=== PATIENT | male | born 2000 | race Caucasian/White ===

== ENCOUNTER 2024-07-26 19:47 | Inpatient (IN) | payer BC ==
[~2024-07-26] VITALS: Ht 170.2 cm; Wt 68.0 kg
[2024-07-26 20:20] LABS: BASOPHILS % 0.2 % (0.0-2.0); EOSINOPHILS % 0.3 % (0.0-5.0); HEMATOCRIT. 41.3 % (42.0-52.0); MEAN CORPUSCULAR HEMOGLOBIN 30.2 pg (28.0-32.0); MEAN CORPUSCULAR HGB CONC 33.9 g/dL (31.0-37.0); MEAN CORPUSCULAR VOLUME 89.1 fL (80.0-94.0); MEAN PLATELET VOLUME 7.5 fl (7.4-10.4); MONOCYTES % 10.6 % (2.0-8.0); NEUTROPHILS % 79.9 % (40.0-76.0); PLATELET 264 x1000/uL (130-400); RED BLOOD CELL COUNT 4.63 mill/uL (4.7-6.1); RED CELL DISTRIBUTION WIDTH 13.8 % (11.6-14.6); WHITE BLOOD COUNT 10.4 x1000/uL (4.5-11.0)
[2024-07-26 20:25] LABS: CHLORIDE 106 mEq/L (98-107); POTASSIUM 3.2 mEq/L (3.5-5.1); SODIUM 140 mEq/L (136-145)
[2024-07-26 20:26] LABS: CALCIUM 9.3 mg/dL (8.7-10.4); CARBON DIOXIDE 26 mEq/L (21-32)
[2024-07-26 20:31] LABS: GLUCOSE 128 mg/dL (70-105); UREA NITROGEN BLOOD 10 mg/dL (9-23)
[2024-07-26 20:52] LABS: TROPONIN I HIGH SENSITIVITY 42319 ng/L (3.0-53)
[2024-07-26] MEDS: ENOXAPARIN 80MG/0.8ML SYR SUBCUT ONE (21:54)
[2024-07-26] MEDS: POTASSIUM CHLORIDE 20MEQ/PACKET PO ONE (21:54)
[2024-07-26 22:32] LABS: TROPONIN I HIGH SENSITIVITY 43308 ng/L (3.0-53)
[2024-07-26 23:38] LABS: *AMPHETAMINES SCREEN URINE NEGATIVE (NEGATIVE); *BARBITURATES SCREEN URINE NEGATIVE (NEGATIVE); *BENZODIAZEPINES SCREEN URINE NEGATIVE (NEGATIVE); *COCAINE SCREEN URINE NEGATIVE (NEGATIVE); CANNABINOID URINE SCREEN NEGATIVE (NEGATIVE); ECSTASY MDMA SCREEN URINE NEGATIVE (NEGATIVE); METHADONE URINE SCREEN NEGATIVE (NEGATIVE); OPIATES URINE SCREEN NEGATIVE (NEGATIVE); PHENCYCLIDINE URINE SCREEN NEGATIVE (NEGATIVE)
[2024-07-27] MEDS ORDERED: HYDROCODONE/ACETAMINOPHEN 5/325MG TABLET PO PRN (02:30)
[2024-07-27] MEDS ORDERED: DOCUSATE SODIUM 100MG CAPSULE PO PRN (02:30)
[2024-07-27] MEDS ORDERED: MAGNESIUM/ALUMINUM HYDROXIDE/SIMETHICONE 30ML UDC PO PRN (02:30)
[2024-07-27] MEDS ORDERED: CLONIDINE 0.1MG TABLET PO PRN (02:30)
[2024-07-27] MEDS ORDERED: ONDANSETRON HCL 4MG/2ML INJ IV PRN (02:30)
[2024-07-27] MEDS: ACETAMINOPHEN 325MG TABLET PO PRN (04:06)
[2024-07-27] MEDS: ALPRAZOLAM 0.25 MG TABLET PO NR (04:24)
[2024-07-27 06:45] LABS: CREATINE KINASE MB FRACTION 192.7 ng/mL (0.5-3.6)
[2024-07-27 07:24] LABS: TROPONIN I HIGH SENSITIVITY 66181 ng/L (3.0-53)
[2024-07-27] MEDS: ENOXAPARIN 40MG/0.4ML SYR SUBCUT SCH (09:00)
[2024-07-27 09:44] LABS: ALANINE AMINOTRANSFERASE 42 IU/L (10-49); ALBUMIN 3.9 g/dL (3.2-4.8); ASPARTATE AMINOTRANSFERASE 201 IU/L (<34)
[2024-07-27 09:45] LABS: BILIRUBIN DIRECT 0.2 mg/dL (<=3.0); BILIRUBIN TOTAL 0.6 mg/dL (0.1-1.0); PROTEIN TOTAL 6.8 g/dL (6.0-8.3)
[2024-07-27] MEDS ORDERED: IODIXANOL 320MG/ML 100 ML BOTTLE IV ONE (12:16)
[2024-07-27] MEDS ORDERED: HEPARIN 1000 UNITS/ML 10ML ONE (12:16)
[2024-07-27] MEDS ORDERED: LIDOCAINE HCL 1% 20ML VIAL ONE (12:16)
[2024-07-27 12:44] LABS: CREATINE KINASE 2200 IU/L (46-171)
[2024-07-27] MEDS ORDERED: NALOXONE HCL 0.4MG/ML VIAL IV PRN (17:30)
[2024-07-27 18:30] VITALS: BP 107/65; PULSE 86; RESP 18; O2SAT 96
[2024-07-27 20:00] VITALS: BP_SYST 103; BP_SYST 107; BP_DIAS 65; BP_DIAS 74; PULSE 81; PULSE 86; RESP 16; RESP 18; TEMP 36.50292; TEMP 36.5292; O2SAT 97
[2024-07-27 22:00] VITALS: BP 109/73; PULSE 85; RESP 16; O2SAT 98
[2024-07-28] VITALS (11 sets, daily range): BP systolic 100–127; BP diastolic 57–85; PULSE 60–100; RESP 12–20; TEMP 36.3918–37.16964; O2SAT 95–100
[2024-07-28 06:36] LABS: BASOPHILS % 0.3 % (0.0-2.0); EOSINOPHILS % 2.1 % (0.0-5.0); HEMATOCRIT. 41.9 % (42.0-52.0); HEMOGLOBIN. 13.7 g/dL (14.0-18.0); LYMPHOCYTES % 24.4 % (20.0-50.0); MEAN CORPUSCULAR HEMOGLOBIN 29.5 pg (28.0-32.0); MEAN CORPUSCULAR HGB CONC 32.7 g/dL (31.0-37.0); MEAN CORPUSCULAR VOLUME 90.3 fL (80.0-94.0); MEAN PLATELET VOLUME 7.8 fl (7.4-10.4); MONOCYTES % 10.1 % (2.0-8.0); NEUTROPHILS % 63.1 % (40.0-76.0); PLATELET 270 x1000/uL (130-400); RED BLOOD CELL COUNT 4.64 mill/uL (4.7-6.1); RED CELL DISTRIBUTION WIDTH 13.9 % (11.6-14.6); WHITE BLOOD COUNT 8.8 x1000/uL (4.5-11.0)
[2024-07-28 06:46] LABS: CHLORIDE 107 mEq/L (98-107); POTASSIUM 3.6 mEq/L (3.5-5.1); SODIUM 140 mEq/L (136-145)
[2024-07-28 06:47] LABS: CALCIUM 9.5 mg/dL (8.7-10.4); CARBON DIOXIDE 24 mEq/L (21-32)
[2024-07-28 06:52] LABS: ALANINE AMINOTRANSFERASE 38 IU/L (10-49); CREATININE 0.8 mg/dL (0.6-1.3); GLUCOSE 91 mg/dL (70-105); TRIGLYCERIDE 71 mg/dL (0-150); UREA NITROGEN BLOOD 8 mg/dL (9-23)
[2024-07-28 06:53] LABS: LDL CHOLESTEROL 56 mg/dL (5-100)
[2024-07-28 06:54] LABS: ALBUMIN 4.1 g/dL (3.2-4.8); ASPARTATE AMINOTRANSFERASE 107 IU/L (<34); BILIRUBIN DIRECT 0.3 mg/dL (<=3.0); CHOLESTEROL 113 mg/dL (<200); HDL CHOLESTEROL 44 mg/dL (>55); PHOSPHORUS 3.8 mg/dL (2.5-4.9); THYROID STIMULATING HORMONE 0.53 uIU/mL (0.55-4.78)
[2024-07-28 06:55] LABS: BILIRUBIN TOTAL 0.9 mg/dL (0.1-1.0)
[2024-07-28 07:03] LABS: TROPONIN I HIGH SENSITIVITY 15699 ng/L (3.0-53)
[2024-07-28] MEDS: SODIUM CHLORIDE 0.9% 1,000 ML IV SCH (10:40)
[2024-07-28] MEDS ORDERED: HEPARIN 1000 UNITS/ML 10ML ONE ×2 (13:27→15:07)
[2024-07-28] MEDS ORDERED: LIDOCAINE HCL 1% 10 MG/ML 10ML VIAL ONE ×2 (13:28→15:07)
[2024-07-28] MEDS ORDERED: IODIXANOL 320MG/ML 100 ML BOTTLE IV ONE ×2 (13:28→15:07)
[2024-07-28] MEDS ORDERED: MIDAZOLAM HCL 2 MG/2 ML VIAL ONE (13:48)
[2024-07-28] MEDS ORDERED: FENTANYL CITRATE/PF 50MCG/ML 2ML VIAL ONE (13:48)
[2024-07-28] MEDS ORDERED: ATROPINE SULFATE 1MG/10ML SYR IV PRN (15:30)
[2024-07-28] MEDS ORDERED: ATOR40TA70 MT (16:49)
[2024-07-28] MEDS ORDERED: COR3 MT (16:49)
== END 2024-07-28 21:00 | disposition home or self-care (01) | DRG 281 ==
LOC: ER 19:47 → EDBEDREQSVC 07-27 04:56 → 5EST 07-27 18:10
PROVIDERS: ADMIT Family Medicine Adult Medicine; ATTEND Family Medicine Adult Medicine
PROC: 4A023N7 Measurement of Cardiac Sampling and Pressure, Left Heart, Percutaneous Approach (ICD-10-PCS; principal; 2024-07-28)
PROC: B211YZZ Fluoroscopy of Multiple Coronary Arteries using Other Contrast (ICD-10-PCS; 2024-07-28)
PROC: B215YZZ Fluoroscopy of Left Heart using Other Contrast (ICD-10-PCS; 2024-07-28)
DX: I21.4 Non-ST elevation (NSTEMI) myocardial infarction (principal); M62.82 Rhabdomyolysis; K52.9 Noninfective gastroenteritis and colitis, unspecified; Z20.822 Contact with and (suspected) exposure to COVID-19; F41.9 Anxiety disorder, unspecified; B33.24 Viral cardiomyopathy; Z82.49 Family history of ischemic heart disease and other diseases of the circulatory system
CPT/HCPCS: 36415; 71045; 80048; 80061; 80076; 80305; 82550; 82553; 83036; 83735; 84100; 84439; 84443; 84481; 84484; 85025; 85379; 87426; 93005; 93306; 93458; 93970; 99291; C1769; C1887; C1893; J1644; J1650; J2250; J3010; J3490; J7030; Q9967